=== PATIENT | male | born 2000 | race African-American/Black ===

== ENCOUNTER 2021-06-01 13:06 | Emergency (ER) | payer MEDICAID ==
[~2021-06-01] VITALS: Ht 188 cm; Wt 75.0 kg
[2021-06-01 14:21] VITALS: BP 108/87
== END 2021-06-01 14:47 | disposition home or self-care (01) ==
LOC: ER 13:06
DX: U07.1 COVID-19 (principal); R05.9 Cough, unspecified
CPT/HCPCS: 99283; C9803; U0003; U0005